=== PATIENT | male | born 1940 | race Caucasian/White ===

== ENCOUNTER → 2017-06-26 | Outpatient (CLI) | payer MEDICARE ==
[~2017-06-26] MED LIST: AEC81 PO; CARV3.12 PO; CHOL100034 PO; CHOL200074 PO; CLOP75TA14 PO; FURO20TA4 PO; RANI-248 PO; ROSU10TA PO; TIOT18CA3 IH; VALS160T2 PO
== END | disposition home or self-care (01) ==
LOC: SHCH 09:53
PROVIDERS: ATTEND Internal Medicine Cardiovascular Disease
DX: I08.2 Rheumatic disorders of both aortic and tricuspid valves (principal); I10 Essential (primary) hypertension
CPT/HCPCS: 93306

== ENCOUNTER → 2017-07-08 | Outpatient (CLI) | payer MEDICARE | END | disposition home or self-care (01) | LOC: SHCH 08:42 | PROVIDERS: ATTEND Internal Medicine Cardiovascular Disease | DX: I25.10 Atherosclerotic heart disease of native coronary artery without angina pectoris (principal) | CPT/HCPCS: 93880 ==

== ENCOUNTER → 2017-07-14 | Outpatient (CLI) | payer MEDICARE ==
[~2017-07-14] MED LIST changes: +REGADENOSON 0.4 MG/5 ML PF SYG IVP SCH
== END | disposition home or self-care (01) ==
LOC: SHCH 08:14
PROVIDERS: ATTEND Internal Medicine Cardiovascular Disease
DX: I10 Essential (primary) hypertension (principal)
CPT/HCPCS: 78452; 93017; 96374; A9500 ×2; J2785

== ENCOUNTER 2018-07-28 07:58 | Day surgery (SDC) | payer MEDICARE ==
[~2018-07-28] VITALS: Ht 167.6 cm; Wt 77.4 kg
[2018-07-28] VITALS (8 sets, daily range): BP systolic 101–204; BP diastolic 37–56
[~2018-07-28 07:58] MED LIST changes: -REGADENOSON 0.4 MG/5 ML PF SYG IVP SCH; +SODIUM CHLORIDE 0.9% 1000ML 1,000 ML IV ONE
[2018-07-28 08:40] LABS: POTASSIUM 4.1 mmol/L (3.5-5.1)
[2018-07-28] MEDS ORDERED: APIX5TAB PO (09:14)
[2018-07-28] MEDS ORDERED: AMIODARONE (09:14)
[2018-07-28] MEDS ORDERED: TERAZOSIN (09:14)
[2018-07-28] MEDS ORDERED: PROPOFOL 10 MG/ML 20ML VIAL IV ONE ×2 (10:06)
== END 2018-07-28 11:15 | disposition home or self-care (01) ==
LOC: DAH 07:58 → ENDO 07:58
PROVIDERS: ATTEND Internal Medicine
DX: K57.30 Diverticulosis of large intestine without perforation or abscess without bleeding (principal); Z86.010 Personal history of colon polyps; K59.00 Constipation, unspecified; Z95.5 Presence of coronary angioplasty implant and graft; Z98.890 Other specified postprocedural states; Z98.49 Cataract extraction status, unspecified eye; E78.5 Hyperlipidemia, unspecified; I13.0 Hypertensive heart and chronic kidney disease with heart failure and stage 1 through stage 4 chronic kidney disease, or unspecified chronic kidney disease; N18.9 Chronic kidney disease, unspecified; I50.9 Heart failure, unspecified; Z86.73 Personal history of transient ischemic attack (TIA), and cerebral infarction without residual deficits; I48.91 Unspecified atrial fibrillation; I21.3 ST elevation (STEMI) myocardial infarction of unspecified site; Z85.038 Personal history of other malignant neoplasm of large intestine; Z79.01 Long term (current) use of anticoagulants; I25.10 Atherosclerotic heart disease of native coronary artery without angina pectoris; K64.1 Second degree hemorrhoids
CPT/HCPCS: 36415; 45378; 80051; 93005; A4606; J2704 ×2; J7030